=== PATIENT | female | born 1985 | race Caucasian/White ===

== ENCOUNTER 2023-11-08 20:55 | Emergency (ER) | payer SELFPAY ==
[~2023-11-08] VITALS: Ht 157.5 cm; Wt 69.0 kg
[2023-11-08 20:57] VITALS: BP 142/94; PULSE 116; RESP 18; TEMP 98.1; O2SAT 100
[2023-11-08] MEDS: ibuprofen tablet 400 MG TABLET PO ONE (21:23)
== END 2023-11-08 22:04 ==
LOC: ER 20:56
DX: S80.02XA Contusion of left knee, initial encounter (principal); M54.6 Pain in thoracic spine; F12.90 Cannabis use, unspecified, uncomplicated; V89.2XXA Person injured in unspecified motor-vehicle accident, traffic, initial encounter; Y93.89 Activity, other specified; Y92.89 Other specified places as the place of occurrence of the external cause; Y99.8 Other external cause status
CPT/HCPCS: 72070; 73564; 99283; 99284